=== PATIENT | female | born 1960 | race Caucasian/White ===

== ENCOUNTER 2024-05-26 01:38 | Observation (INO) ==
[2024-05-26] MEDS ORDERED: IOPAMIDOL 100 ML BOTTLE IV ONE (01:39)
[2024-05-26] MEDS: SODIUM CHLORIDE IV ONE (02:23)
[2024-05-26] MEDS: ACETAMINOPHEN 1,000 MG/100 ML BAG IV ONE (02:23)
[2024-05-26 02:39] LABS: Basophils # (Auto) 0.02 K/mcL (0.00-0.30); Basophils % (Auto) 0.2 % (0.0-2.0); Eosinophils # (Auto) 0 K/mcL (0.00-0.70); Eosinophils % (Auto) 0 % (0.0-7.0); Hematocrit 42.1 % (34.1-44.9); Hemoglobin 13.7 g/dL (11.2-15.7); Lymphocytes # (Auto) 1.19 K/mcL (1.50-4.80); Lymphocytes % (Auto) 9.1 % (15.5-49.0); Mean Cell Volume 85.7 fL (80.0-100.0); Mean Corpuscular HGB Conc 32.5 g/dL (31.0-36.0); Monocytes # (Auto) 1.53 K/mcL (0.10-0.90); Monocytes % (Auto) 11.7 % (1.0-12.0); Neutrophils % (Auto) 78.8 % (38.0-78.0); Platelet Count 256 K/mcL (140-440); RBC 4.91 M/mcL (3.59-5.38); Red Cell Distribution Width 13.1 % (11.5-14.5); WBC 13.1 K/mcL (4.5-11.0)
[2024-05-26 03:00] LABS: ALT/SGPT 11 U/L (<40); AST/SGOT 17 U/L (<32); Albumin 4.1 gm/dL (3.2-5.2); Albumin/Globulin Ratio 1.2 (1.0-2.3); Alkaline Phosphatase 58 U/L (39-117); Bilirubin,Total 0.7 mg/dL (0.1-1.0); Blood Urea Nitrogen 18 mg/dL (8-23); Calcium 9.5 mg/dL (8.6-10.4); Carbon Dioxide 25 mmol/L (22-30); Chloride 95 mmol/L (96-108); Globulin 3.4 gm/dL (2.2-3.7); Glomerular Filtration Rate 77; Glucose 137 mg/dL (70-105); Potassium 3.7 mmol/L (3.3-5.1); Sodium 136 mmol/L (133-145)
[2024-05-26] MEDS: CIPROFLOXACIN 400 MG/200 ML BAG IV ONE (03:00)
[2024-05-26] MEDS: VANCOMYCIN 1,000 MG in 0.9 % SODIUM CHLORIDE 250 ML IV ONE (06:07)
[2024-05-26 06:26] LABS: Appearance,Urine HAZY (Clear); Bilirubin,Urine Negative (Negative); Color,Urine YELLOW; Glucose,Urine (UA) Negative (Negative); Ketones,Urine 5 mg/dL (Negative); Leukocyte Esterase,Urine Negative /uL (Negative); Mucus,Urine FEW /hpf; Nitrate,Urine Negative (Negative); Protein,Urine Negative (Negative); Specific Gravity,Urine 1.049 (1.000-1.035); Urine RBC 3 /hpf (0-3); Urine Squamous Epithelial Cell 13 /hpf (0-4); Urine WBC 1 /hpf (0-4); Urobilinogen,Urine Negative
[2024-05-26] MEDS: rOPINIRole 1 MG TABLET PO ONE (06:49)
[2024-05-26] MEDS ORDERED: VANCOMYCIN 250 MG CAPSULE PO ONE (06:51)
[2024-05-26] MEDS: VANCOMYCIN 125 MG CAPSULE PO ONE (07:39)
[2024-05-26] MEDS ORDERED: ONDANSETRON 4 MG/2 ML VIAL IV PRN ×2 (08:28→10:14)
[2024-05-26] MEDS ORDERED: POTASSIUM CHLORIDE 40 MEQ in DEXTROSE 5% IN WATER 500 ML IV PRN (10:14)
[2024-05-26] MEDS ORDERED: IPRATROPIUM/ALBUTEROL 3 ML AMPUL.NEB NEB PRN (10:14)
[2024-05-26] MEDS ORDERED: METOCLOPRAMIDE 10 MG/2 ML VIAL IV PRN (10:14)
[2024-05-26] MEDS ORDERED: POTASSIUM CHLORIDE 20 MEQ TABLET PO PRN (10:14)
[2024-05-26] MEDS ORDERED: HYDROcodone/APAP 5/325MG TABLET PO PRN (10:14)
[2024-05-26] MEDS ORDERED: MAGNESIUM SULFATE 2 GM/50 ML BAG IV PRN (10:14)
[2024-05-26] MEDS: 0.9 % SODIUM CHLORIDE 1,000 ML IV SCH (11:44)
[2024-05-26] MEDS ORDERED: MELOXICAM 7.5 MG TABLET PO PRN (11:55)
[2024-05-26] MEDS: VANCOMYCIN 125 MG CAPSULE PO SCH (12:30)
[2024-05-26] MEDS: ACETAMINOPHEN 325 MG TABLET PO PRN (12:31)
[2024-05-26] MEDS: rOPINIRole 1 MG TABLET PO SCH (12:31)
[2024-05-26] MEDS: 0.9 % SODIUM CHLORIDE 10 ML SYRINGE IV SCH (15:56)
[2024-05-26] MEDS: GABAPENTIN 300 MG CAPSULE PO SCH (20:34)
[2024-05-27 06:13] LABS: Basophils # (Auto) 0.04 K/mcL (0.00-0.30); Basophils % (Auto) 0.5 % (0.0-2.0); Eosinophils # (Auto) 0.19 K/mcL (0.00-0.70); Eosinophils % (Auto) 2.4 % (0.0-7.0); Hemoglobin 11.5 g/dL (11.2-15.7); Lymphocytes # (Auto) 1.37 K/mcL (1.50-4.80); Lymphocytes % (Auto) 17.2 % (15.5-49.0); Mean Cell Volume 86.6 fL (80.0-100.0); Mean Corpuscular HGB Conc 32.9 g/dL (31.0-36.0); Mean Platelet Volume 9.9 fL (8.8-12.5); Monocytes # (Auto) 0.92 K/mcL (0.10-0.90); Monocytes % (Auto) 11.6 % (1.0-12.0); Platelet Count 210 K/mcL (140-440); RBC 4.04 M/mcL (3.59-5.38); Red Cell Distribution Width 13.1 % (11.5-14.5)
[2024-05-27 06:40] LABS: ALT/SGPT 7 U/L (<40); AST/SGOT 13 U/L (<32); Albumin 3.3 gm/dL (3.2-5.2); Albumin/Globulin Ratio 1.2 (1.0-2.3); Alkaline Phosphatase 54 U/L (39-117); Bilirubin,Direct 0.2 mg/dL (<0.3); Bilirubin,Total 0.5 mg/dL (0.1-1.0); Blood Urea Nitrogen 9 mg/dL (8-23); Calcium 8.9 mg/dL (8.6-10.4); Carbon Dioxide 27 mmol/L (22-30); Chloride 97 mmol/L (96-108); Globulin 2.8 gm/dL (2.2-3.7); Glomerular Filtration Rate 95; Glucose 97 mg/dL (70-105); Lactate Dehydrogenase 163 U/L (135-225); Phosphorous 2.6 mg/dL (2.5-4.5); Sodium 135 mmol/L (133-145); Triglycerides 104 mg/dL (<150); Uric Acid 4.2 mg/dL (2.5-8.0)
[2024-05-27] MEDS: ENOXAPARIN 40 MG/0.4 ML SYRINGE SQ SCH (08:27)
[2024-05-27] MEDS: POTASSIUM CHLORIDE 20 MEQ TABLET PO PRN (12:28)
[2024-05-28 07:51] VITALS: TEMP 97.8
[2024-05-28 12:05] VITALS: O2SAT 96
== END 2024-05-28 12:14 | disposition home or self-care (01) ==
LOC: MEDSUR 01:38 → ED 01:38 → MEDSUR 11:25
PROVIDERS: ADMIT Internal Medicine; ATTEND Internal Medicine